=== PATIENT | female | born 1945 | race Caucasian/White ===

== ENCOUNTER → 2019-10-11 11:29 | Outpatient (BNVA) | payer MEDICARE, OTHER, SELFPAY | PROVIDERS: Family Provider Registered Nurse; PCP Registered Nurse; Visit Provider Specialist | DX: M25.569 Pain in unspecified knee (principal); M17.11 Unilateral primary osteoarthritis, right knee; M23.91 Unspecified internal derangement of right knee | CPT/HCPCS: 73560; 73565 ==

== ENCOUNTER 2019-10-20 08:29 | Outpatient (CLI) | payer MEDICARE, OTHER, SELFPAY ==
--- NOTE | 2019-10-20 08:56 | MR_ITS ---
WS: [id number] MRI RIGHT KNEE NONCONTRAST TECHNIQUE: Axial PD, coronal PD fat sat, coronal PD, sagittal PD, and sagittal PD fat-sat images obta ined. CLINICAL INFORMATION: RIGHT KNEE INTERNAL DERANGEMENT COMPARISON: MRI October 02, 2018 FINDINGS: ACL and PCL are intact. Distal quadriceps and patella tendons are intact. Small moderate suprapatella r effusion. Hypertrophic patella. Edema in Hoffa's fat pad. New blunting and loss of the anterior horn lateral meniscus may be due to interval meniscectomy versu s interval tear. Meniscus otherwise intact. Chronic thinning of the posterior horn lateral meniscus. Chronic thinning of the medial meniscus with chronic intrasubstance signal abnormality posterior horn medial meniscus. No acute appearing medial meniscus tear. Moderate degenerative narrowing involving the medial and lateral joint compartments with moderate cho ndromalacia. This is worse involving the lateral joint compartment. Hypertrophic spurring along the j oint line. MCL is intact. Chronic thickening involving the popliteus and lateral collateral ligament complex similar in appearance, slightly more prominent today. Mild subchondral edema along the tibial plateau with a small amount of subchondral cystic change. Pre viously described PCL ganglion cyst has decreased in size today with the largest component measuring 1.4 x 0.7 CM. Edema in Hoffa's fat pad unchanged. Advanced chondro malacia patella with subchondral e kirby. MR/MR knee RT wo con* [id number] IMPRESSION: 1. PCL and ACL are intact. 2. Previously described PCL ganglion cyst is decreased in size with largest ci rcumscribed component measuring 1.4 x 0.7 CM. 3. Advanced grade IV chondromalacia patella with subchondral edema not signifi cantly changed. 4. Moderate suprapatellar effusion with edema in Hoffa's fat pad. 5. Blunting of the anterior horn lateral meniscus with complete loss of the an terior horn. This is new from previous but may be postoperative in nature due t o meniscectomy. Otherwise meniscus is unchanged in appearance. 6. Moderate to advanced chondromalacia involving the medial and lateral joint compartments worse involving the lateral joint compartment. 7. Chronic appearing thickening consistent with tendinitis or healed partial t ear involving the popliteus and lateral collateral ligament complex. This is si milar to previous but slightly more prominent today.
== END 2019-10-20 08:30 | disposition home or self-care (01) ==
LOC: RADWPI 08:33
PROVIDERS: Family Provider Registered Nurse; PCP Registered Nurse; Visit Provider Specialist
DX: M23.91 Unspecified internal derangement of right knee (principal); M17.11 Unilateral primary osteoarthritis, right knee; M67.461 Ganglion, right knee; M22.41 Chondromalacia patellae, right knee; M25.461 Effusion, right knee; R60.9 Edema, unspecified
CPT/HCPCS: 73721

== ENCOUNTER 2019-10-27 08:33 | Day surgery (SDC) | payer MEDICARE, OTHER, SELFPAY ==
[2019-10-25 09:56] VITALS: BMI 22.9
--- NOTE | 2019-10-27 07:35 | P.ANESASSM_ITS ---
Pre-Anesthetic Assessment Pre-Anesthetic Assessment: Height/Weight: Height 1.65 m Weight 62.596 kg Preop Diagnosis: change in bowel habits Proposed Procedure: Operation Date: 10/27/19 10:05 Proposed Procedures p Colonoscopy 30027 R19.4(Not Applicable) - Malachi Patrick MD Familial anesthetic complications: PONV Was Beta Erika taken within 24 hours: N/A Last intake: NPO > 8 hrs Social: Social History: No alcohol and No tobacco Exam: Pre-Anes Outpt Exam: alert, oriented x 3, clear to auscultation bilaterally and regular rate & rhythm Airway: Cervical ROM: WNL (neck fusion) MP: 2 Dentition: False Additional comments: implants Musc/skel: Musc/skel: Lower Back Pain (Lumbar fusion) Anesthetic Plan: ASA status: 1 Anesthesia: MAC Risk of > 500 ml blood loss (7ml/kg in children): No PFSH Anesthesia PFSH: Medical History (Updated 10/18/19 @ 10:37 by Malachi Patrick MD) Change in bowel habits Chronic constipation Enrolled in chronic care management Hx MRSA infection Surgical History History of hysterectomy History of lumbar fusion History of neck surgery History of shoulder surgery Family History Other Heart disease Social History Smoking and tobacco status: never smoked Alcohol intake: current Alcohol intake frequency: holidays/special occasions o nly Lives independently: No Household members: spouse Housing: House Marital status: Current occupational status: retired Current gender identity: Female Data Anesthesia Cardiac Studies: No Data to Display
[2019-10-27 08:47] VITALS: BP 135/77; PULSE 93; RESP 18; TEMP 36.7; O2SAT 100
[2019-10-27] MEDS: sodium chloride 0.9% 1,000 ML 30 ML IV (08:58)
--- NOTE | 2019-10-27 09:21 | W.PM.OPSUD ---
Surgery/Procedure H&P Update DATE OF PROCEDURE: October 27, 2019 DATE H&P PERFORMED: 10/18/19 H&P UPDATE INFORMATION: I have reviewed H&P completed within last 30 days, I have examined patient prior to procedure and No changes to prior documentation PREOP DIAGNOSIS: change in bowel habits PRIMARY INDICATION FOR PROCEDURE: The same PLANNED PROCEDURE: Operation Date: 10/27/19 10:05 Proposed Procedures p Colonoscopy 16412 R19.4(Not Applicable) - Malachi Patrick MD
[2019-10-27 10:03] VITALS: BP 137/66; PULSE 81; RESP 20; TEMP 36.1; O2SAT 100
[2019-10-27 10:08] VITALS: PULSE 72; RESP 18; O2SAT 99
[2019-10-27 10:10] VITALS: BP 134/75; PULSE 75; RESP 17; TEMP 36.3; O2SAT 99
[2019-10-27 10:15] VITALS: BP 133/67; PULSE 73; RESP 16; TEMP 36.3; O2SAT 100
[2019-10-27 10:32] VITALS: BP 152/53; PULSE 72; RESP 18; O2SAT 100
== END 2019-10-27 10:50 | disposition home or self-care (01) ==
PROVIDERS: PCP Registered Nurse; Visit Provider Surgery
PROC: 0DJD8ZZ Inspection of Lower Intestinal Tract, Via Natural or Artificial Opening Endoscopic (ICD-10-PCS; CPT 45378; principal; 2019-10-27 10:00)
DX: R19.4 Change in bowel habit (principal); Z86.14 Personal history of Methicillin resistant Staphylococcus aureus infection; Z98.1 Arthrodesis status; Z82.49 Family history of ischemic heart disease and other diseases of the circulatory system
CPT/HCPCS: 12345; 45378; J0330; J1100; J2001; J2405; J2704; J7030

== ENCOUNTER → 2019-11-23 09:38 | Outpatient (BNVA) | payer MEDICARE, OTHER, SELFPAY | PROVIDERS: PCP Registered Nurse; Visit Provider Registered Nurse | DX: R53.83 Other fatigue (principal); E55.9 Vitamin D deficiency, unspecified; E53.8 Deficiency of other specified B group vitamins; R53.82 Chronic fatigue, unspecified | CPT/HCPCS: 80053; 82306; 82607; 85025 ==

== ENCOUNTER 2019-12-09 09:23 | Outpatient (CLI) | payer MEDICARE, OTHER, SELFPAY ==
[2019-12-09 10:10] LABS: Thyroid Stimulating Hormone 4.85 uIU/mL (0.27-4.20)
== END 2019-12-09 09:24 | disposition home or self-care (01) ==
LOC: LAB 09:27
PROVIDERS: PCP Registered Nurse; Visit Provider Surgery
DX: R53.82 Chronic fatigue, unspecified (principal)
CPT/HCPCS: 84443

== ENCOUNTER → 2020-03-07 09:35 | Outpatient (BNVA) | payer MEDICARE, OTHER, SELFPAY | PROVIDERS: PCP Registered Nurse; Visit Provider Registered Nurse | DX: E53.8 Deficiency of other specified B group vitamins (principal); D50.8 Other iron deficiency anemias | CPT/HCPCS: 82607; 83550; 85025 ==

== ENCOUNTER → 2020-05-23 15:17 | Outpatient (BNVA) | payer MEDICARE, OTHER, SELFPAY | PROVIDERS: PCP Registered Nurse; Visit Provider Registered Nurse | DX: N20.0 Calculus of kidney (principal) | CPT/HCPCS: 81000 ==

== ENCOUNTER 2020-05-31 12:24 | Outpatient (CLI) | payer MEDICARE, SELFPAY ==
--- NOTE | 2020-05-31 12:15 | XRR_ITS ---
PROCEDURE INFORMATION: Exam: XR Abdomen, 1 View Exam date and time: 05/31/2020 12:51 PM Age: 75 years old Clinical indication: Condition or disease; Other: Stones TECHNIQUE: Imaging protocol: XR of the abdomen. Views: Frontal supine view of the abdomen. 1 View. COMPARISON: CT abdomen pelvis w con* [id number] 05/16/2020 3:59 PM FINDINGS: Gastrointestinal tract: Normal. No bowel dilation. Bones/joints: Surgical hardware and laminectomy defects seen in the lumbar spine. There is also moderate lumbar spine osteoarthritis. XR/XR KUB [id number] IMPRESSION: 1. No acute GI abnormalities. 2. Osteoarthritis and postoperative changes lumbar spine
== END 2020-05-31 12:25 | disposition home or self-care (01) ==
LOC: RAD 12:40
PROVIDERS: PCP Registered Nurse; Visit Provider Urology
DX: N20.9 Urinary calculus, unspecified (principal); M47.816 Spondylosis without myelopathy or radiculopathy, lumbar region
CPT/HCPCS: 74018; 81003; 87077; 87086; 87184

== ENCOUNTER 2020-07-04 08:21 | Outpatient (CLI) | payer MEDICARE, OTHER, SELFPAY ==
[2020-07-04 09:57] LABS: Blood Urea Nitrogen 12 mg/dL (8-23)
--- NOTE | 2020-07-04 10:00 | CT_ITS ---
WS: [id number] CT ABDOMEN PELVIS TECHNIQUE: Noncontrast CT of the abdomen and contrast-enhanced CT of the abdomen and pelvis with junior nal and sagittal reformatted images. CLINICAL INFORMATION: FLANK PAIN WITH HX OF UROLITHIASIS COMPARISON: CT May 16, 2020 DLP: 740.[address] scans at [facility] use at least one of these dose optimization techniques: automat ed exposure control; mA and/or kV adjustment per patient size (includes targeted exams where dose is matched to clinical indication); or iterative reconstruction. FINDINGS: Normal bilateral renal parenchymal enhancement. No hydronephrosis. No obstructing renal or ureteral c alculi. Adrenal glands are normal. Mild diffuse fatty infiltration the liver. Lung bases are well aer ated. Normal GE junction. Low-attenuation lesion in the spleen likely splenic cyst measuring 12 mm. Normal caliber abdominal aorta. Normal sigmoid colon. No evidence of high-grade small or large bowel obstruction. Fat-containing umbilical hernia. Normal caliber abdominal aorta. No pelvic or inguinal l ymphadenopathy. Prior postoperative changes pedicle screw fixation L3-L5 with interbody fusion. Advan rochelle degenerative narrowing at L2-3. Laminectomy defects lower lumbar spine. CT/CT abdomen pelvis wo/w [id number] IMPRESSION: 1. No obstructing renal or ureteral calculi. 2. No hydronephrosis in either kidney. 3. Diffuse fatty infiltration of the liver. 4. No other significant findings.
[2020-07-04] MEDS: iohexol 300 mg/mL 100 mL Btl IV (10:15)
== END 2020-07-04 08:22 | disposition home or self-care (01) ==
LOC: CT 08:23
PROVIDERS: PCP Registered Nurse; Visit Provider Urology
DX: R10.9 Unspecified abdominal pain (principal); Z87.442 Personal history of urinary calculi; K76.0 Fatty (change of) liver, not elsewhere classified
CPT/HCPCS: 74178; 81003; 82565; 84520

== ENCOUNTER → 2020-07-07 09:26 | Outpatient (BNVA) | payer MEDICARE, OTHER, SELFPAY | PROVIDERS: PCP Registered Nurse; Visit Provider Urology | DX: Z20.822 Contact with and (suspected) exposure to COVID-19 (principal); R10.9 Unspecified abdominal pain; Z87.442 Personal history of urinary calculi | CPT/HCPCS: 87635 ==

== ENCOUNTER 2020-07-13 10:17 | Day surgery (SDC) | payer MEDICARE, OTHER, SELFPAY ==
[2020-07-12 15:41] VITALS: BMI 22.4
[2020-07-13] VITALS (7 sets, daily range): BP systolic 107–135; BP diastolic 58–76; PULSE 66–81; RESP 15–21; TEMP 36.3–36.8; O2SAT 95–99
--- NOTE | 2020-07-13 | SCC_ITS ---
Procedure Done: 1. Cystoscopy with right retrograde ureteropyelogram 2. Right flexible ureteroscopy/renoscopy 3. Right ureteral stent placement 61.9 seconds of fluoroscopic guidance, for a cumulative dose of 9.86 mGy, was provided to Dr. John by the radiology department. C-arm images of the abdomen were saved for the patient's permanent record. [facility]
--- NOTE | 2020-07-13 10:26 | SC_ITS ---
WS: [id number] C-arm fluoroscopy of right retrograde ureterogram, 07/13/2020 Clinical Data: Right ureteroscopy and retrograde Comparison: KUB, 05/31/2020. 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 No intraluminal filling defects, dilatation or obstruction is seen. A ureteral catheter has been placed and curls at the inferior right renal pelvis. The patient's posterior fusion from L3 through L5 is noted. SC/C-arm FL for Urology Impression: Duplicated right ureter and renal pelvis with placement of ureteral catheter in to the lower right renal pelvis.
[2020-07-13] MEDS: sodium chloride 0.9% 1,000 ML 30 ML IV (10:56)
--- NOTE | 2020-07-13 11:49 | P.ANESASSM_ITS ---
Pre-Anesthetic Assessment Pre-Anesthetic Assessment: Height/Weight: Height 1.65 m Weight 61.235 kg Temp Pulse Resp BP Pulse Ox 98.3 F 78 18 135/76 98 07/13/20 10:50 07/13/20 10:50 07/13/20 10:50 07/13/20 10:50 07/13/20 10:50 Preop Diagnosis: Suspicious ureteral mucosa Proposed Procedure: Operation Date: 07/13/20 12:00 Proposed Procedures p Cystoscopy 93705 54730 61901 R10.9 N28.9(Not Applicable) - Ector John MD s Retrograde Pyelogram(Right) - Ector John MD s Ureteroscopy(Not Applicable) - Ector John MD s Ureteral Stent Placement(Not Applicable) - Ector John MD Familial anesthetic complications: None Was Beta Erika taken within 24 hours: N/A Last intake: Intake Last Liquid Date 07/12/20 Last Liquid Time 20:00 Last Solid Date 07/12/20 Last Solid Time 20:00 Social: Social History: No alcohol and No tobacco Exam: Pre-Anes Outpt Exam: alert, oriented x 3, clear to auscultation michele aterally and regular rate & rhythm Additional Exam Findings (including area of procedure): PONV Airway: Cervical ROM: WNL MP: 3 Dentition: False (upper dentures) and Other (implants (lower)) Pulmonary: Pulmonary: None reported Metabolic: Metabolic: Thyroid Anesthetic Plan: ASA status: 2 Anesthesia: MAC Risk of > 500 ml blood loss (7ml/kg in children): No Meds/Allergies Current Medications: Current Medications Generic Name Dose Route Start Last Admin Trade Name Freq PRN Reason Stop Dose Admin Sodium Chloride 1,000 mls @ 30 ml s/hr 07/13/20 10:30 07/13/20 10:56 Sodium Chloride 0.9% IV 07/14/20 10:29 30 mls/hr .Q24H BRYN Administration PFSH Anesthesia PFSH: Medical History Change in bowel habits Chronic constipation Enrolled in chronic care management Flank pain with history of urolithiasis Hx MRSA infection Surgical History History of colonoscopy (~11/2019) History of hysterectomy History of lumbar fusion History of neck surgery History of shoulder surgery Family History Other Heart disease Social History Smoking and tobacco status: never smoked Alcohol intake: current Alcohol intake frequency: holidays/special occasions only Lives independently: No Household members: spouse Housing: House Marital status: Current occupational status: retired Current gender identity: Female Data Anesthesia Cardiac Studies: No Data to Display
--- NOTE | 2020-07-13 12:12 | W.PM.OPSUD ---
Surgery/Procedure H&P Update DATE OF PROCEDURE: July 13, 2020 DATE H&P PERFORMED: 07/04/20 H&P UPDATE INFORMATION: I have reviewed H&P completed within last 30 days, I have examined patient prior to procedure, No changes to prior documentation and H&P is in [facility] [place] EMR on date indicated PREOP DIAGNOSIS: Suspicious ureteral mucosa PLANNED PROCEDURE: Operation Date: 07/13/20 12:00 Proposed Procedures p Cystoscopy 37121 [id number] 27643 R10.9 N28.9(Not Applicable) - Ector John MD s Retrograde Pyelogram(Right) - Ector John MD s Ureteroscopy(Not Applicable) - Ector John MD s Ureteral Stent Placement(Not Applicable) - Ector John MD
--- NOTE | 2020-07-13 12:32 | PM.OP ---
Operative Report Date of procedure: July 13, 2020 Pre-op Diagnosis: Suspicious ureteral mucosa Post-op Diagnosis: 1. Normal ureteral renal pelvic and calyceal mucosa with no evidence of a neoplastic or persistent inflammatory process 2. 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 Post-op Findings: As above Procedure Done: 1. Cystoscopy with right retrograde ureteropyelogram 2. Right flexible ureteroscopy/renoscopy 3. Right ureteral stent placement Implants: 4.5 x 26 cm right ureteral stent, no string Specimens removed/disposition: None Pathology: none sent Surgeon: Dora Anesthesia: General Estimated blood loss: None Complications: None Condition: stable Disposition: PACU Brief History: First evaluated late May 2020 for increasing abdominal pain, gross hematuria, grossly abnormal swamp water looking urine and urinalysis showing evidence of an infection. A CT scan done originally at [facility] (05/16/2020) showed grossly abnormal upper urinary tract with enhancement of the ureteral wall but no clear evidence of obstruction although there did appear to be some hydroureter and hydronephrosis. She was treated with continued antibiotics and recommended a follow-up CT scan which showed some persistence of these findings. It was recommended because of the persistence to perform a flexible ureteroscopy to assess the abnormalities of the mucosa. Procedure: After routine preoperative evaluation examination and obtaining of informed consent she was taken to the operating suite on 07/13/2020 where general anesthesia was administered without difficulty after appropriate timeout was performed, SCDs confirmed to be functioning, preoperative antibiotics administered, beta-kaia protocol confirmed. Prepped and draped in the usual sterile fashion in dorsolithotomy position paying careful attention to avoiding pressure points. 21 Fijian cystoscope with 30 degree lens was introduced into the urethra meatus and advanced into the bladder under videoscopy. The bladder was systematically examined and found to be within normal limits. An 8 Fijian cone-tip catheter was intubated into the right ureteral orifice for right retrograde ureteropyelogram: The ureter demonstrated bifurcation at approximately mid ureteral level. There was a single calyx in the upper pole that was compound. The lower pole moiety looked normal as well. Could not see a filling defect. Flexible tip guidewire was then advanced up the ureter without difficulty into the area of the renal pelvis. A 7 Fijian flexible ureteroscope was then advanced over the guidewire up the right ureter and took the natural course to the lower pole moiety. The flexible ureteroscope was then attempted to be passed up the ureter but could not get past the ureteral orifice and therefore the cystoscope was backloaded over the guidewire and a 15 Fijian 4 cm balloon was used to dilate the distal ureter easily. After dilation the flexible ureteroscope was easily advanced through the distal ureter up the ureter into the lower pole moiety and the guidewire was removed. Contrast was utilized to visualize the individual calyces which were one by one inspected. No mucosal abnormality was identified. No masses. No active bleeding. The flexible ureteroscope was then withdrawn distally to just below the bifurcation which was easily identified. The scope was then directed up the ureter to the upper pole moiety. As per the retrograde pyelogram there was a single calyx which was compound. The mucosa was normal. There were no masses. The ureteroscope was then backed down to the bifurcation and a guidewire was passed into the lower pole moiety. The scope was then backed out of the ureter under direct visualization. The distal ureter showed some mild dilation trauma and therefore was decided to leave a temporary stent in. Cystoscope was then backloaded over the guidewire and a 4.5 Fijian by 26 cm double-pigtail stent was advanced over the guidewire through the cystoscope up the ureter without difficulty curling in the area of the renal pelvis of the lower pole moiety. Wire was removed. Bladder was drained and procedure was completed. She tolerated the procedure well without complications and was awakened in the operating room and returned to the recovery in stable condition. PLANS: 1. Follow-up early next week for cystoscopy and stent removal after appropriate healing of the distal ureter.
[2020-07-13] MEDS: iohexol 300 mg/mL 50 mL Btl (OR ONLY) XX (13:13)
--- NOTE | 2020-07-13 13:25 | SUR.PHASEI ---
pt sleepy but awakes to voice, denies pain and nausea, vss pt quickly back to sleep ,pt oral airway out on arrival to PACU by REFERENCE SERVICES HEAD
--- NOTE | 2020-07-13 13:32 | SUR.PHASEI ---
PT AWAKES OFF AND ON , VERBALIZES NO PAIN OR NAUSEA, STATES ( I JUST WANT TO SLEEP) VSS.PT ON RA TRIAL. SATS 95-96%
--- NOTE | 2020-07-13 14:06 | ANE.PACU2 ---
Inpatient post-anesthesia follow up: Airway intact: Yes Vital signs: Temperature 98 F Pulse Rate 70 Respiratory Rate 16 Blood Pressure 130/72 Pulse Oximetry 96 Oxygen Delivery Me thod Room Air Oxygen Flow Rate 8 Fraction of Inspir ed Oxygen Hydration adequate: Yes Nausea and vomiting: No Pain level: 1 Mental status: Baseline
== END 2020-07-13 14:25 | disposition home or self-care (01) ==
PROVIDERS: PCP Registered Nurse; Visit Provider Urology
PROC: 0TJB8ZZ Inspection of Bladder, Via Natural or Artificial Opening Endoscopic (ICD-10-PCS; CPT 52000; principal; 2020-07-13 12:00)
PROC: (CPT 74420; 2020-07-13 12:00)
PROC: 0TJ98ZZ Inspection of Ureter, Via Natural or Artificial Opening Endoscopic (ICD-10-PCS; CPT 52351; 2020-07-13 12:00)
PROC: (CPT 50605; 2020-07-13 12:00)
DX: N28.9 Disorder of kidney and ureter, unspecified (principal); N30.01 Acute cystitis with hematuria; Z86.14 Personal history of Methicillin resistant Staphylococcus aureus infection
CPT/HCPCS: 52332; 52351; 12345; 76000; C2625; J1100; J2405; J2704; J3010; J3490; J7030

== ENCOUNTER → 2020-07-21 08:09 | Outpatient (BNVA) | payer MEDICARE, OTHER, SELFPAY | PROVIDERS: PCP Registered Nurse; Visit Provider Urology | DX: R10.9 Unspecified abdominal pain (principal); Z87.442 Personal history of urinary calculi; N28.9 Disorder of kidney and ureter, unspecified; Q62.5 Duplication of ureter; Z96.0 Presence of urogenital implants | CPT/HCPCS: 81003 ==

== ENCOUNTER → 2020-08-29 08:29 | Outpatient (BNVA) | payer MEDICARE, OTHER, SELFPAY | PROVIDERS: PCP Registered Nurse; Visit Provider Registered Nurse | DX: E03.9 Hypothyroidism, unspecified (principal); R53.82 Chronic fatigue, unspecified | CPT/HCPCS: 84443; 85025 ==

== ENCOUNTER 2020-11-08 13:22 | Outpatient (CLI) | payer MEDICARE, OTHER, SELFPAY ==
--- NOTE | 2020-11-08 13:45 | MR_ITS ---
WS: [id number] MRI LEFT SHOULDER HISTORY: M67.912 - Unspecified disorder of synovium and tendon, prior surgery. COMPARISON: None available. TECHNIQUE: Multiplanar sequences of the shoulder joint are submitted. Severe AC joint hypertrophy. Osteophytes and soft tissue encroachment upon the supraspinatus muscle a nd tendon. There is significant deformity and encroachment upon the very anterior supraspinatus. Ther e is increased T2 signal through the AC ligament. Moderate increased fluid in the subacromial and sub deltoid bursa. No os acromion. Micrometallic artifacts around the shoulder from prior surgery. Biceps tendon is not identified in the bicipital groove. Severely high riding humeral head. Degenerative changes at the glenohumeral joint. Vertical orientati on of the glenoid with osteophytes. Several anchors are noted in the humeral head along with loss of the cartilage surrounding the humeral head. Marked atrophy of the infraspinatus and supraspinatus muscles. Subscapularis muscle is more normal si ze. Complete tears with retraction of the infraspinatus and supraspinatus tendons. Tendons are retrac sherry to the medial humeral head. Mild tendinopathy in the subscapularis tendon but no tear is identifi ed. Tear at the base of the anterior labrum. Intrasubstance degeneration in the posterior labrum. The re is additional advanced intrasubstance degeneration in the superior labrum. MR/MR shoulder LT wo con* [id number] IMPRESSION: 1. Severe AC joint hypertrophy with encroachment upon the anterior supraspinat us muscle. 2. Complete tears with retraction supraspinatus and infraspinatus tendons. Ten dons are retracted to the medial humeral head. 3. Marked atrophy of the supraspinatus and infraspinatus muscles due to chroni c rotator cuff tears. 4. Biceps tendon not located in the bicipital groove consistent with torn or d islocated tendon. 5. Anchors in the humeral head from prior surgical repair. 6. Degenerative changes throughout the labrum. Most significantly involving th e anterior, superior and posterior labrum. 7. Markedly high riding humeral head.
== END 2020-11-08 13:23 | disposition home or self-care (01) ==
PROVIDERS: PCP Registered Nurse; Visit Provider Registered Nurse
DX: M67.912 Unspecified disorder of synovium and tendon, left shoulder (principal); M75.122 Complete rotator cuff tear or rupture of left shoulder, not specified as traumatic; M62.512 Muscle wasting and atrophy, not elsewhere classified, left shoulder
CPT/HCPCS: 73221

== ENCOUNTER → 2021-01-26 10:54 | Outpatient (BNVA) | payer MEDICARE, OTHER, SELFPAY | PROVIDERS: PCP Registered Nurse; Visit Provider Registered Nurse | DX: E53.8 Deficiency of other specified B group vitamins (principal) | CPT/HCPCS: 82607 ==

== ENCOUNTER → 2021-02-05 15:23 | Outpatient (BNVA) | payer MEDICARE, OTHER, SELFPAY | PROVIDERS: PCP Registered Nurse; Visit Provider Registered Nurse | DX: E53.8 Deficiency of other specified B group vitamins (principal); R53.82 Chronic fatigue, unspecified; D50.9 Iron deficiency anemia, unspecified | CPT/HCPCS: 82728; 83550; 85025 ==

== ENCOUNTER → 2021-04-25 09:48 | Outpatient (BNVA) | payer MEDICARE, OTHER, SELFPAY | PROVIDERS: PCP Registered Nurse; Visit Provider Registered Nurse | DX: N39.0 Urinary tract infection, site not specified (principal); R39.9 Unspecified symptoms and signs involving the genitourinary system | CPT/HCPCS: 81000; 87077; 87086; 87184 ==

== ENCOUNTER → 2021-07-16 10:20 | Outpatient (BNVA) | payer MEDICARE, OTHER, SELFPAY | PROVIDERS: PCP Registered Nurse; Visit Provider Registered Nurse | DX: R05.9 Cough, unspecified (principal) | CPT/HCPCS: 87635 ==

== ENCOUNTER → 2021-09-25 10:45 | Outpatient (BNVA) | payer MEDICARE, OTHER, SELFPAY | PROVIDERS: PCP Registered Nurse; Visit Provider Registered Nurse | DX: E55.9 Vitamin D deficiency, unspecified (principal); I47.9 Paroxysmal tachycardia, unspecified; D50.9 Iron deficiency anemia, unspecified; E53.8 Deficiency of other specified B group vitamins; E03.9 Hypothyroidism, unspecified | CPT/HCPCS: 80053; 80061; 82306; 82607; 84443; 85025; 86140 ==

== ENCOUNTER → 2021-10-25 08:45 | Outpatient (BNVA) | payer MEDICARE, OTHER, SELFPAY | PROVIDERS: PCP Registered Nurse; Visit Provider Specialist | DX: M17.0 Bilateral primary osteoarthritis of knee (principal); Z71.89 Other specified counseling | CPT/HCPCS: 20610 ==

== ENCOUNTER → 2021-12-03 13:01 | Outpatient (BNVA) | payer MEDICARE, OTHER, SELFPAY | PROVIDERS: PCP Registered Nurse; Visit Provider Internal Medicine | DX: I47.9 Paroxysmal tachycardia, unspecified (principal); I34.1 Nonrheumatic mitral (valve) prolapse; R00.1 Bradycardia, unspecified | CPT/HCPCS: 93005; 93225; 93226; 99203; 99204 ==

== ENCOUNTER → 2022-01-31 08:35 | Outpatient (BNVA) | payer MEDICARE, OTHER, SELFPAY | PROVIDERS: PCP Registered Nurse; Visit Provider Specialist | DX: M17.0 Bilateral primary osteoarthritis of knee (principal) | CPT/HCPCS: 20610; J1100; J2795; J3301 ==

== ENCOUNTER → 2022-02-04 14:32 | Outpatient (BNVA) | payer MEDICARE, OTHER, SELFPAY | PROVIDERS: PCP Registered Nurse; Visit Provider Registered Nurse | DX: R42 Dizziness and giddiness (principal); R51.9 Headache, unspecified | CPT/HCPCS: 87426 ==

== ENCOUNTER 2022-02-20 13:40 | Outpatient (CLI) | payer MEDICARE, OTHER, SELFPAY ==
--- NOTE | 2022-02-20 14:30 | USCV_ITS ---
Sylvie Zhang Age: 76 Gender: F : 1945 Exam Date: 02/20/2022 14:13 Ordering Phys: Kian Esparza M.D ([email or web address]) Technologist: [place] [facility] [place]: mitral prolapse BP: / HR: 98 Rhythm: Sinus Technical Quality: Adequate MEASUREMENTS (Male / Female) Normal Values 2D ECHO LV Diastolic Diameter PLAX 3.6 cm 4.2 - 5.9 / 3.9 - 5.3 cm LV Systolic Diameter PLAX 2.7 cm IVS Diastolic Thickness 1.1 cm 0.6 - 1.0 / 0.6 - 0.9 cm IVS Systolic Thickness 1.2 cm LVPW Diastolic Thickness 1.2 cm 0.6 - 1.0 / 0.6 - 0.9 cm LVPW Systolic Thickness 1.4 cm LVOT Diameter 2.0 cm LV Ejection Fraction 2D Teich 51.2 % LV Ejection Fraction MOD 2C 59.5 % LV Ejection Fraction 2C AL 59.5 % LA Diameter 3.7 cm IVC Diameter 1.1 cm M-MODE Aortic Annulus Diameter 3.5 cm LA Ao Ratio MM 1.1 MV E Point Septal Separation 1.2 cm DOPPLER AV Peak Velocity 136.0 cm/s LVOT Peak Velocity 105.0 cm/s AV Area Cont Eq vti 3.0 cm squared AV Area Cont Eq pk 2.5 cm squared MV Area PHT 5.0 cm squared Mitral E to A Ratio 0.8 MV E' Velocity 38.5 cm/s Mitral E to MV E' Ratio 7.1 Mitral E to LV E' Lateral Ratio 8.0 Mitral E to LV E' Septal Ratio 6.4 TR Peak Velocity 230.0 cm/s TR Peak Gradient 21.2 mmHg TV Peak E Velocity 78.0 cm/s Right Atrial Pressure 3.0 mmHg Pulmonary Artery Systolic Pressu 24.2 mmHg RV Acceleration Time 0.2 s FINDINGS Left Ventricle Left ventricle is normal in size. LV systolic function is normal with EF of 55 to 60%. No regional wall motion abnormalities are seen. Grade 1 diastolic dysfunction Right Ventricle RV is normal in size and function Right Atrium Normal in size Left Atrium Normal in size Mitral Valve Mitral valve prolapse is noted. Mild mitral regurgitation. Aortic Valve Aortic valve is structurally normal. No significant aortic stenosis. Moderate aortic regurgitation Tricuspid Valve Mild tricuspid regurgitation. Pulmonary artery systolic function is normal Pulmonic Valve Grossly normal Pericardium Normal Aorta Normal in size IVC IVC appears to be normal CONCLUSIONS LV systolic function is normal with EF 55 to 60%. Grade 1 diastolic dysfunction Mitral valve prolapse is seen. Mild mitral regurgitation Moderate aortic regurgitation Mild tricuspid regurgitation. Comparison studies are available Kian Esparza MD (Electronically Signed) Final Date: 03 March 2022 16:51 S
== END 2022-02-20 13:41 | disposition home or self-care (01) ==
LOC: RAD 13:41
PROVIDERS: PCP Registered Nurse; Visit Provider Internal Medicine
DX: I34.1 Nonrheumatic mitral (valve) prolapse (principal); I47.9 Paroxysmal tachycardia, unspecified; Q22.8 Other congenital malformations of tricuspid valve
CPT/HCPCS: 93306

== ENCOUNTER → 2022-05-09 09:14 | Outpatient (BNVA) | payer MEDICARE, OTHER, SELFPAY | PROVIDERS: PCP Registered Nurse; Visit Provider Specialist | DX: M17.0 Bilateral primary osteoarthritis of knee (principal) | CPT/HCPCS: 20610; J7326 ==

== ENCOUNTER → 2022-08-15 09:00 | Outpatient (BNVA) | payer MEDICARE, OTHER, SELFPAY | PROVIDERS: PCP Registered Nurse; Visit Provider Specialist | DX: M17.0 Bilateral primary osteoarthritis of knee (principal) | CPT/HCPCS: 20610; 73560; 73565; 99213; J1100; J2795; J3301 ==

== ENCOUNTER → 2022-09-30 09:25 | Outpatient (BNVA) | payer MEDICARE, OTHER, SELFPAY | PROVIDERS: PCP Registered Nurse; Visit Provider Registered Nurse | DX: K21.9 Gastro-esophageal reflux disease without esophagitis (principal); K59.09 Other constipation; Q43.8 Other specified congenital malformations of intestine; E78.5 Hyperlipidemia, unspecified; R19.4 Change in bowel habit; E55.9 Vitamin D deficiency, unspecified; E53.8 Deficiency of other specified B group vitamins; R53.82 Chronic fatigue, unspecified | CPT/HCPCS: 80053; 80061; 82306; 82607; 85025; 86140 ==

== ENCOUNTER → 2022-11-21 09:03 | Outpatient (BNVA) | payer MEDICARE, OTHER, SELFPAY | PROVIDERS: PCP Registered Nurse; Visit Provider Specialist | DX: M17.0 Bilateral primary osteoarthritis of knee (principal) | CPT/HCPCS: 20610; J7326 ==

== ENCOUNTER → 2023-01-13 13:50 | Outpatient (BNVA) | payer MEDICARE, OTHER, SELFPAY | PROVIDERS: PCP Registered Nurse; Visit Provider Registered Nurse | DX: Z12.83 Encounter for screening for malignant neoplasm of skin (principal) | CPT/HCPCS: 88305 ==

== ENCOUNTER → 2023-03-06 10:39 | Outpatient (BNVA) | payer MEDICARE, OTHER, SELFPAY | PROVIDERS: PCP Registered Nurse; Visit Provider Specialist | DX: M17.0 Bilateral primary osteoarthritis of knee | CPT/HCPCS: 20610; J1100; J2795; J3301 ==

== ENCOUNTER → 2023-05-29 13:44 | Outpatient (BNVA) | payer MEDICARE, OTHER, SELFPAY | PROVIDERS: PCP Registered Nurse; Visit Provider Nurse Practitioner | DX: M17.0 Bilateral primary osteoarthritis of knee (principal) | CPT/HCPCS: 20610; J7325 ==

== ENCOUNTER → 2023-09-26 09:51 | Outpatient (BNVA) | payer MEDICARE, SELFPAY | PROVIDERS: PCP Registered Nurse; Visit Provider Specialist | DX: M17.0 Bilateral primary osteoarthritis of knee (principal) | CPT/HCPCS: 20610; J1100; J2795; J3301 ==

== ENCOUNTER → 2023-10-16 10:29 | Outpatient (BNVA) | payer MEDICARE, SELFPAY | PROVIDERS: PCP Registered Nurse; Visit Provider Podiatrist Foot & Ankle Surgery | DX: M19.071 Primary osteoarthritis, right ankle and foot (principal); M19.072 Primary osteoarthritis, left ankle and foot | CPT/HCPCS: 73630; 99203 ==

== ENCOUNTER → 2023-10-29 09:36 | Outpatient (BNVA) | payer MEDICARE, SELFPAY | PROVIDERS: PCP Registered Nurse; Visit Provider Nurse Practitioner Family | DX: D48.5 Neoplasm of uncertain behavior of skin (principal); Z85.828 Personal history of other malignant neoplasm of skin; L82.1 Other seborrheic keratosis; L57.0 Actinic keratosis; L57.8 Other skin changes due to chronic exposure to nonionizing radiation | CPT/HCPCS: 11102; 17000; 99204 ==

== ENCOUNTER → 2023-11-25 16:05 | Outpatient (BNVA) | payer MEDICARE, SELFPAY | PROVIDERS: PCP Registered Nurse; Visit Provider Registered Nurse | DX: E55.9 Vitamin D deficiency, unspecified (principal); E53.8 Deficiency of other specified B group vitamins; E03.9 Hypothyroidism, unspecified; E78.5 Hyperlipidemia, unspecified; Z13.6 Encounter for screening for cardiovascular disorders | CPT/HCPCS: 80053; 80061; 82306; 82607; 84443; 85025 ==

== ENCOUNTER → 2023-12-05 10:00 | Outpatient (BNVA) | payer MEDICARE, SELFPAY | PROVIDERS: PCP Registered Nurse; Visit Provider Specialist | DX: M17.0 Bilateral primary osteoarthritis of knee (principal) | CPT/HCPCS: 20610; J1100; J2795; J3301 ==

== ENCOUNTER → 2024-02-26 11:13 | Outpatient (BNVA) | payer MEDICARE, SELFPAY | PROVIDERS: PCP Registered Nurse; Visit Provider Registered Nurse | DX: R42 Dizziness and giddiness (principal) | CPT/HCPCS: 80048; 85025; 93005 ==

== ENCOUNTER → 2024-03-12 08:58 | Outpatient (BNVA) | payer MEDICARE, SELFPAY | PROVIDERS: PCP Registered Nurse; Visit Provider Registered Nurse | DX: D69.6 Thrombocytopenia, unspecified (principal) | CPT/HCPCS: 85025 ==

== ENCOUNTER → 2024-04-02 08:45 | Outpatient (BNVA) | payer MEDICARE, SELFPAY | PROVIDERS: PCP Registered Nurse; Visit Provider Specialist | DX: M17.0 Bilateral primary osteoarthritis of knee (principal) | CPT/HCPCS: 20610; J7325 ==

== ENCOUNTER 2024-04-15 09:09 | Outpatient (CLI) | payer MEDICARE, SELFPAY ==
--- NOTE | 2024-04-15 09:14 | XR_ITS ---
WS: [id number] XR thoracic spine 3V* [id number] REASON FOR EXAM: M54.6 - Pain in thoracic spine FINDINGS: Minimal levoscoliosis in the mid thoracic spine. No significant kyphosis. There are mild compression deformities with mild disc space narrowing and osteophytosis T8-T11. No other significant vertebral body abnormality. XR/XR thoracic spine 3V* [id number] IMPRESSION: Degenerative spondylosis in the thoracic spine as above.
== END 2024-04-15 09:10 | disposition home or self-care (01) ==
PROVIDERS: PCP Registered Nurse; Visit Provider Registered Nurse
DX: M54.6 Pain in thoracic spine (principal)
CPT/HCPCS: 72072

== ENCOUNTER 2024-04-29 09:06 | Outpatient (CLI) | payer MEDICARE, SELFPAY ==
--- NOTE | 2024-04-29 09:30 | MR_ITS ---
WS: [id number] MRI THORACIC SPINE noncontrast HISTORY: M47.814 - Spondylosis without myelopathy or radiculopathy... COMPARISON: None available. TECHNIQUE: Multiplanar sequences are performed in sagittal and axial planes. Slight increase in the thoracic kyphosis. Very slight disc space narrowing is asymmetric. Slightly gr eater narrowing of the anterior disc spaces from T4-5 through T8-9. Small amount of reactive marrow e kirby along the endplates of T5, T7, T8 and T9. T1-2: Normal. T2-3: Normal. T3-4: Normal. T4-5: Normal. T5-6: Normal. T6-7: Normal. T7-8: Normal. T8-9: Bilateral facet joint arthropathy. Minimal bilateral foraminal stenosis. T9-10: Mild bilateral facet joint arthropathy with mild foraminal stenosis. T10-11: Moderate facet joint arthritis with mild foraminal stenosis. T11-12: Mild facet arthritis with mild foraminal stenosis. Mildly ectatic thoracic aorta. Paravertebral soft tissues are negative. MR/MR thoracic spin wo con* [id number] IMPRESSION: 1. Mild increase in thoracic kyphosis. 2. Facet joint arthropathy most significant from T8-9 to T11-12 is mild. 3. Mild bilateral foraminal stenosis from T8-9 through T11-12. 4. No acute fractures.
== END 2024-04-29 09:07 | disposition home or self-care (01) ==
LOC: RAD 09:06
PROVIDERS: PCP Registered Nurse; Visit Provider Registered Nurse
DX: M47.814 Spondylosis without myelopathy or radiculopathy, thoracic region (principal)
CPT/HCPCS: 72146

== ENCOUNTER → 2024-04-30 10:39 | Outpatient (BNVA) | payer MEDICARE, SELFPAY | PROVIDERS: PCP Registered Nurse; Visit Provider Registered Nurse | DX: R10.9 Unspecified abdominal pain (principal) | CPT/HCPCS: 81000 ==

== ENCOUNTER 2024-06-03 15:39 | Outpatient (CLI) | payer MEDICARE, SELFPAY ==
--- NOTE | 2024-06-03 16:30 | CT_ITS ---
WS: [id number] CT ABDOMEN AND PELVIS NONCONTRAST HISTORY: N20.0 - Calculus of kidney, LEFT flank pain for 6 months. TECHNIQUE: Imaging performed through the abdomen and pelvis. Coronal and sagittal reformats are submi tted. All CT scans at [facility] use at least one of these dose optimization techniques: auto mated exposure control; mA and/or kV adjustment per patient size (includes targeted exams where dose is matched to clinical indication); or iterative reconstruction. DLP: 436.57 mGy.cm COMPARISON: 07/04/2020 Lower thorax: Small hiatal hernia. Otherwise negative. Liver: Normal size liver. No mass or bile duct dilatation. Gallbladder: Normal gallbladder. No pericholecystic fluid or cholelithiasis. No gallbladder wall thic [place]. Pancreas: As visualized the pancreas is stable. Spleen: Normal. Adrenal glands: Normal. No mass. Right kidney: Duplicated collecting system. No obstruction or stone. Left kidney: Normal size kidney with no mass or hydronephrosis. Aorta: Mild atherosclerosis abdominal aorta with no aneurysm. No free fluid, intraperitoneal air or significant lymphadenopathy. GI tract: Stomach is moderately well distended with fluid and food products. No small bowel obstructi on. Moderate diffuse constipation. Normal appendix. No diverticular disease. Abdominal wall: Small umbilical hernia contains fat only. Pelvis: No free fluid. Prior hysterectomy. No adenopathy. Phleboliths within the pelvis. Osseous structures: Advanced degenerative changes in the lumbar spine. Prior posterior fusion from L3 -L5. Progression of sclerosis and degenerative disc disease at L2-3. CT/CT kidney stone [id number] IMPRESSION: 1. No renal obstruction or ureteral calcification. 2. 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 3. Normal appendix. 4. Diffuse moderate constipation. 5. No ascites or adenopathy.
== END 2024-06-03 15:40 | disposition home or self-care (01) ==
LOC: RAD 15:40
PROVIDERS: PCP Registered Nurse; Visit Provider Registered Nurse
DX: N20.0 Calculus of kidney (principal); K44.9 Diaphragmatic hernia without obstruction or gangrene; K59.00 Constipation, unspecified; K42.9 Umbilical hernia without obstruction or gangrene; I87.8 Other specified disorders of veins
CPT/HCPCS: 74176

== ENCOUNTER → 2024-07-09 10:28 | Outpatient (BNVA) | payer MEDICARE, SELFPAY | PROVIDERS: PCP Registered Nurse; Visit Provider Specialist | DX: M17.0 Bilateral primary osteoarthritis of knee (principal); Z71.89 Other specified counseling | CPT/HCPCS: 20610; J1100; J2795; J3301 ==

== ENCOUNTER → 2024-11-05 08:15 | Outpatient (BNVA) | payer MEDICARE, SELFPAY | PROVIDERS: PCP Registered Nurse; Visit Provider Specialist | DX: M17.0 Bilateral primary osteoarthritis of knee (principal) | CPT/HCPCS: 20610; J7318 ==

== ENCOUNTER → 2024-11-25 12:17 | Outpatient (BNVA) | payer MEDICARE, SELFPAY | PROVIDERS: PCP Registered Nurse; Visit Provider Registered Nurse | DX: Z00.00 Encounter for general adult medical examination without abnormal findings (principal); E53.8 Deficiency of other specified B group vitamins; E03.9 Hypothyroidism, unspecified | CPT/HCPCS: 80053; 80061; 82607; 85025 ==

== ENCOUNTER → 2025-02-25 10:16 | Outpatient (BNVA) | payer MEDICARE, SELFPAY | PROVIDERS: PCP Registered Nurse; Visit Provider Specialist | DX: M17.0 Bilateral primary osteoarthritis of knee (principal) | CPT/HCPCS: 20610; J1100; J2795; J3301; J9999 ==

== ENCOUNTER → 2025-05-27 10:22 | Outpatient (BNVA) | payer MEDICARE, SELFPAY | PROVIDERS: PCP Registered Nurse; Visit Provider Specialist | DX: M17.0 Bilateral primary osteoarthritis of knee (principal) | CPT/HCPCS: 20610; J7318 ==